=== PATIENT | female | born 1980 | race African-American/Black ===

== ENCOUNTER 2024-06-29 10:28 | Inpatient (IN) | payer OTHER ==
[2024-06-29 11:14] VITALS: BMI 29.2
[2024-06-29] MEDS ORDERED: AMPICILLIN SODIUM 2 GM VIAL ONE (11:16)
[2024-06-29] MEDS ORDERED: SODIUM CHLORIDE 100 ML IVPB ONE ×2 (11:16→15:12)
[2024-06-29] MEDS: ELECTROLYTE-148 SOLN 1,000 ML IV SCH ×2 (11:30→18:48)
[2024-06-29] MEDS: AMPICILLIN SODIUM 2 GM VIAL IVPB ONE (11:37)
[2024-06-29 12:22] LABS: BASO % 0.2 % (0-2.0); EOS % 0.5 % (0-4.5); HEMATOCRIT 33.7 % (32.4-45.2); HEMOGLOBIN 10.8 GM/dL (10.7-15.3); LYMPH % 21.2 % (8-40); MCH 23.9 pg (25.7-33.7); MEAN CELL VOLUME 74.7 fl (80-96); MEAN PLT VOLUME 10.2 fl (7.5-11.1); MONO % 6.3 % (3.8-10.2); NEUT % 71.8 % (42.8-82.8); PLATELET COUNT 211 10^3/uL (134-434); RBC 4.52 M/mm3 (3.60-5.2); RDW 15.1 % (11.6-15.6); WHITE BLOOD COUNT 8.2 K/mm3 (4.0-10.0)
[2024-06-29 12:39] LABS: POTASSIUM 4.5 mmol/L (3.5-5.1)
[2024-06-29 12:41] LABS: BLOOD UREA NITROGEN 6.8 mg/dL (7-18); CALCIUM 8.8 mg/dL (8.5-10.1)
[2024-06-29 12:45] LABS: CREATININE 0.5 mg/dL (0.55-1.3)
[2024-06-29 13:16] LABS: INR 0.92 (0.83-1.09); PROTHROMBIN TIME (PATIENT) 10.1 SEC (9.7-13.0)
[2024-06-29 13:19] LABS: ACTIVATED PTT 27.5 SECONDS (25.2-36.5)
[2024-06-29 13:37] LABS: HIV INTERPRETATION NEGATIVE (NEGATIVE)
[2024-06-29] MEDS: OXYTOCIN 30 UNITS in 0.9% NS 30 UNIT/500 ML INFUS.BAG IVPB SCH (13:45)
[2024-06-29] MEDS ORDERED: AMPICILLIN SODIUM 1 GM VIAL ONE (15:12)
[2024-06-29] MEDS: AMPICILLIN SODIUM 1 GM VIAL IVPB SCH (15:20)
[2024-06-29] MEDS ORDERED: FENTANYL CITRATE/PF 50 MCG/ML VIAL ONE (17:57)
[2024-06-29] MEDS ORDERED: FENTANYL/BUPIVACAINE/NS/PF - PCEA - 50 ML DISP.SYRIN EP ONE (17:59)
[2024-06-29] MEDS: FENTANYL/BUPIVACAINE/NS/PF - PCEA - 50 ML DISP.SYRIN EP SCH (18:13)
[2024-06-29] MEDS ORDERED: NALOXONE HCL 0.4 MG/ML VIAL IVPUSH PRN (18:30)
[2024-06-29] MEDS ORDERED: OXYTOCIN 20 UNITS in 0.9% NS 20 UNIT/1,000 ML INFUS.BAG IV ONE (19:10)
[2024-06-29] MEDS ORDERED: LIDOCAINE HCL 1% PRESERVATIVE FREE - 30ML VIAL ONE (19:10)
[2024-06-29] MEDS: OXYTOCIN 20 UNITS in 0.9% NS 20 UNIT/1,000 ML INFUS.BAG IV SCH (20:36)
[2024-06-29] MEDS ORDERED: BENZOCAINE 28 GM HEMORRHOIDAL OINTMENT TP PRN (20:45)
[2024-06-29] MEDS ORDERED: BISACODYL 10 MG SUPP.RECT RC PRN (20:45)
[2024-06-29] MEDS ORDERED: METHYLERGONOVINE MALEATE 0.2 MG/1 ML AMP IM PRN (20:45)
[2024-06-29] MEDS ORDERED: oxyCODONE HCL 5 MG TABLET PO PRN (20:45)
[2024-06-29] MEDS ORDERED: WITCH HAZEL 50% (TUCKS) 40 PAD/JAR PAD TP PRN (20:45)
[2024-06-29] MEDS: BUTORPHANOL TARTRATE 2 MG/ML VIAL IVPB ONE (21:07)
[2024-06-29] MEDS: PROMETHAZINE HCL 25 MG/1 ML VIAL IVPB ONE (21:08)
[2024-06-29] MEDS ORDERED: IBUPROFEN 600 MG TABLET (FP) PO ONE (21:41)
[2024-06-29] MEDS: IBUPROFEN 600 MG TABLET (FP) PO PRN (21:42)
[2024-06-30] MEDS: ACETAMINOPHEN 325 MG TABLET (FP) PO PRN (00:50)
[2024-06-30 08:17] LABS: BASO % 0.4 % (0-2.0); EOS % 0.3 % (0-4.5); HEMATOCRIT 31.1 % (32.4-45.2); HEMOGLOBIN 9.8 GM/dL (10.7-15.3); LYMPH % 20.3 % (8-40); MCH 23.7 pg (25.7-33.7); MCHC 31.5 g/dl (32.0-36.0); MEAN PLT VOLUME 10.3 fl (7.5-11.1); MONO % 6.5 % (3.8-10.2); NEUT % 72.5 % (42.8-82.8); PLATELET COUNT 192 10^3/uL (134-434); RBC 4.14 M/mm3 (3.60-5.2); RDW 15.6 % (11.6-15.6); WHITE BLOOD COUNT 10.1 K/mm3 (4.0-10.0)
[2024-06-30] MEDS: BENZOCAINE 20% 57 GM BOTTLE TP PRN (08:40)
[2024-06-30] MEDS: FERROUS SO4 325 MG TABLET (FP) PO SCH (09:11)
[2024-06-30] MEDS: PRENATAL VITAMINS W/ FOLIC ACID TABLET (FP) PO SCH (09:11)
[2024-06-30] MEDS: ACETAMINOPHEN/CAFFEINE/BUTALBITAL 1 TAB PO PRN (12:39)
[2024-06-30] MEDS ORDERED: SENNOSIDES/DOCUSATE COMBO (SENNA PLUS) TABLET (UD) PO PRN (22:00)
[2024-06-30 22:32] VITALS: RESP 17
[2024-07-01 14:33] VITALS: BP 105/58; PULSE 74; TEMP 97.5
[2024-07-02 12:38] LABS: POC NITRAZINE POS
== END 2024-07-01 16:00 | disposition home or self-care (01) | DRG 807 ==
LOC: JLDR 10:28 → J3W 23:50
PROVIDERS: ADMIT Obstetrics & Gynecology; ATTEND Obstetrics & Gynecology
PROC: 10E0XZZ Delivery of Products of Conception, External Approach (ICD-10-PCS; principal; 2024-06-29)
PROC: 0HQ9XZZ Repair Perineum Skin, External Approach (ICD-10-PCS; 2024-06-29)
PROC: 3E0R3GC Introduction of Other Therapeutic Substance into Spinal Canal, Percutaneous Approach (ICD-10-PCS; 2024-07-01)
DX: O70.0 First degree perineal laceration during delivery (principal); Z37.0 Single live birth; O69.1XX0 Labor and delivery complicated by cord around neck, with compression, not applicable or unspecified; Z3A.37 37 weeks gestation of pregnancy; O89.4 Spinal and epidural anesthesia-induced headache during the puerperium
CPT/HCPCS: 0241U-QW; 36415; 59409; 80048; 83986-QW; 85025; 85610; 85730; 86780; 86850; 86900; 86901; 87389